=== PATIENT | male | born 1980 | race Caucasian/White ===

== ENCOUNTER 2016-07-28 15:57 | Emergency (ER) | payer OTHER ==
[~2016-07-28] VITALS: Ht 190.5 cm; Wt 75.0 kg
[2016-07-28 16:08] VITALS: BP 113/67; PULSE 83; RESP 16; O2SAT 97
[2016-07-28 17:01] LABS: BASOPHILS % (AUTO) 0.2 % (0-3); EOSINOPHILS % (AUTO) 0.2 % (0-5); MONOCYTES % (AUTO) 11.3 % (4-12); Mean Corpuscular Hemoglobin 30.3 pg (27.0-35.0); Mean Corpuscular Volume 85.8 fL (81-100); NEUTROPHILS % (AUTO) 76.5 % (40-74); Platelet Count 154 bil/L (150-400)
[2016-07-28] MEDS ORDERED: Ondansetron 2 mg/mL 2 mL Inj ONE (17:22)
[2016-07-28] MEDS ORDERED: MetoCLOpramide 5 mg/mL 2 mL Inj ONE (18:20)
[2016-07-28 19:51] VITALS: BP 111/61; PULSE 69; O2SAT 97
--- NOTE | 2016-07-28 20:46 | ED.REPORT ---
HPI-NVD Date of Service July 28, 2016 ED Provider: Manish Gonsalves PA-C Ko is a 35-year-old male with a history of seizure disorder presenting with a chief complaint of nausea and vomiting. He states three-day history of nausea, vomiting, diarrhea. States others in his household have had similar complaints. The diarrhea is nonbloody and without mucus, largely resolved at this point. Vomiting is nonbloody. Admits frontal headache, neck pain, shoulder pain, fatigue, malaise, chills. He has not measured his temperature. Nursing Notes Stated Complaint: WEAK, NOT EATING Chief Complaint: Male Abdominal Pain Nursing Notes Reviewed: Yes Allergies: Coded Allergies: No Known Allergies (Unverified , 07/28/16) Scheduled PRN Metoclopramide (Metoclopramide) 10 Mg Tablet 10 MG PO QID PRN PRN For Nausea General Time Seen by MD: 19:30 Chief Complaint Vomiting Past Medical History Past Medical History Seizure disorder Review of Systems Review of Systems Note: Negative unless stated otherwise in history of present illness Physical Exam General: Tired appearing, well developed, well nourished, no acute distress. Head: Atraumatic, normocephalic. Neck: Supple, no signs of meningismus. Mild paraspinal tenderness. Eyes: No scleral icterus or injection. No discharge. Vision grossly intact. ENT: Voice clear, hearing grossly intact. Respiratory: Regular rate and rhythm. Breath sounds present, clear to auscultation and equal bilaterally. No respiratory distress. No increased work of breathing, speaks in complete sentences. Cardiovascular: Regular rate and rhythm, without murmur, gallop or rub. No pedal edema. Gastrointestinal: Abdomen flat and non-tender without guarding or rebound. Bowel sounds normoactive. Skin: Warm and dry. Neurological: Grossly nonfocal. Negative Kernig and Brudzinski's Psychological: Alert and oriented. Speech appropriate, linear and logical. Behavior appropriate. Initial Vital Signs Vital Signs (First) Date Time Temp Pulse Resp B/P Pulse Ox O2 Delivery O2 Flow Rate FiO2 07/28/16 16:08 36.6 83 16 113/67 97 07/28/16 19:51 Room Air Initial VS: Vital signs normal Interpretation & Diagnostics Lab Results Interpretation Result Diagram: 07/28/16 1600 07/28/16 1600 Test 07/28/16 16:00 07/28/16 19:49 White Blood Count 5.8th/mm3 (3.8-10.1) Red Blood Count 5.42mil/mm3 (4.40-5.80) Hemoglobin 16.4g/dL (13.8-17.2) Hematocrit 46.5% (41.0-50.0) Mean Corpuscular Volume 85.8fL (81-100) Mean Corpuscular Hemoglobin 30.3pg (27.0-35.0) Mean Corpuscular Hemoglobin Concent 35.3% (32.0-37.0) Red Cell Distribution Width 12.8% (12.3-15.4) Platelet Count 154bil/L (150-400) Neutrophils (%) (Auto) 76.5% (40-74) Lymphocytes (%) (Auto) 11.6% (14-46) Monocytes (%) (Auto) 11.3% (4-12) Eosinophils (%) (Auto) 0.2% (0-5) Basophils (%) (Auto) 0.2% (0-3) Sodium Level 138mEq/L (134-144) Potassium Level 3.8mEq/L (3.5-5.2) Chloride Level 98mEq/L (97-108) Carbon Dioxide Level 27mmol/L (18-29) Blood Urea Nitrogen 23mg/dL (6-20) Creatinine 1.04mg/dL (0.76-1.27) Estimat Glomerular Filtration Rate 86mL/min (>59) Glucose Level 119mg/dL (60-99) Calcium Level 9.3mg/dL (8.5-10.1) Magnesium Level 2.0mg/dL (1.6-2.6) Total Bilirubin 0.4mg/dL (0.0-1.2) Aspartate Amino Transf (AST/SGOT) 18U/L (0-50) Alanine Aminotransferase (ALT/SGPT) 16U/L (0-44) Alkaline Phosphatase 47U/L (25-150) Total Protein 6.9g/dL (6.4-8.4) Albumin 4.2g/dL (3.4-5.0) Lipase 32U/L (13-60) Hold Lacy Top Tube Received (Received) Carbamazepine (Tegretol) Level 6.1ug/mL (4.0-12.0) Hold Urine Received (Received) Re-Eval/Medical Decision Med Decision/Clinical Course I discussed this case with Dr. Zaidi 35-year-old male with history seizure disorder presenting with chief complaint of nausea, vomiting diarrhea for the last 3 days. Patient feels tired and weak. Reports that others in his household have had similar complaints. Also complains of frontal headache with neck and shoulder pain. Physical examination is benign. Specifically his neck is supple and has a negative Kernig and Brudzinski's. No rash. He is afebrile. CBC and CMP are unremarkable outside of a mildly elevated BUN at 23, which I suspect is due to dehydration. This is most likely a viral gastroenteritis and I am less suspicious of a bacterial gastroenteritis, inflammatory colitis. I am also reassured his headache and neck pain are unlikely due to meningitis considering he has supple neck, normal Kernig and Brudzinski, normal LOC, he is afebrile with no rash Patient responds well to 2 L of normal saline, ondansetron, metoclopramide, ketorolac. Passes by mouth challenge, feels significant better and wishes to be discharged to home. Provided primary care follow-up referral. Provided emergency return precautions. Patient verbalizes understanding of and consent to the plan. Discharge & Departure Impression: Primary Impression: Gastroenteritis Disposition: Home Discharge Condition All VS Reviewed: Yes Condition: Stable Patient Instructions: Gastroenteritis (GEN) Additional Instructions: Evaluation for nausea, vomiting and diarrhea in the emergency department consisted of history, physical examination and blood work, which are all reassuring that her symptoms are not caused by an immediately dangerous condition. I believe this is viral gastroenteritis, which should pass on its own without treatment. I believe you are stable and safe to be discharged home. Recommend bland foods such as the BRAT diet (bananas, rice, applesauce and toast ). I also recommend taking small amounts of liquids throughout the day such as apple juice, 50-50 with water. I will write a prescription for metoclopramide (Reglan) to help with nausea. This was helpful to you in the emergency department. I will also give you a referral for a primary care provider. Please contact them if your eye symptoms have not significantly resolved in 3-4 days. Return to emergency department for any new or worsening symptoms including vomiting not controlled by medication, increasing pain, fever, increasing headache or neck pain. Referrals: Stephanie Busch EDSupervising Provider for [facility]: Walter Zaidi DO copies to: Stephanie Busch Seth PA-C July 28, 2016 20:46
[2016-07-28] MEDS ORDERED: METO10TA3 PO (20:48)
[2016-07-28 20:52] VITALS: BP 116/59; PULSE 71; O2SAT 96
[2016-07-28 20:57] VITALS: BP 116/59; PULSE 71; O2SAT 96
== END 2016-07-28 20:58 | disposition home or self-care (01) ==
LOC: SED 15:57
DX: K52.9 Noninfective gastroenteritis and colitis, unspecified (principal)
CPT/HCPCS: 36415; 80053; 80156; 83690; 83735; 85025; 99283; G0481